=== PATIENT | male | born 1955 | race African-American/Black ===

== ENCOUNTER 2017-06-19 12:10 | Inpatient (IN) | payer OTHER ==
[2017-06-19] VITALS (25 sets, daily range): BP systolic 61–165; BP diastolic 36–79
[~2017-06-19] VITALS: Ht 190.5 cm; Wt 124.8 kg
--- NOTE | ~2017-06-19 | EKG ---
[address] [address] ELECTROCARDIOGRAM REPORT Name: YUDITH HOSKINS Room #: 238-P ADM IN M.R.#: [id number] Admission: 06/19/17 Attend Phys: Raheem Phan MD Discharge: Date of : 59 Report #: [id number] THIS REPORT FOR: //name// [facility] Test Date: 2017-06-21 Test Time: 14:41:09 Pat Name: YUDITH HOSKINS Department: Room: 238 P Gender: M Pumper Gager: haydee : 1955 Requested By: Raheem Phan Order Number: [id number] MD: Kamran Wade Measurements Intervals [place] Rate: 95 P: 44 NC: 41 QRS: 11 QRSD: 96 T: 157 QT: 361 QTc: 454 Interpretive Statements Atrial fibrillation RSR' in V1 or V2, probably normal variant LVH with secondary repolarization abnormality No previous ECG available for comparison Electronically Signed On 06-21-2017 17:43:07 CDT by Kamran Wade [email or web address] <ELECTRONICALLY SIGNED> By: Kamran Wade MD 06/21/17 174 [id number] 40 Kamran Wade MD /BRITTANY
--- NOTE | ~2017-06-19 | EKG ---
[address] [address] ELECTROCARDIOGRAM REPORT Name: YUDITH HOSKINS Room #: 350-P ADM IN M.R.#: [id number] Admission: 06/19/17 Attend Phys: Raheem Phan MD Discharge: Date of : 59 Report #: [id number] THIS REPORT FOR: //name// [facility] Test Date: 2017-07-03 Test Time: 11:38:50 Pat Name: YUDITH HOSKINS Department: Room: 350 P Gender: M Framing Manager: CHRISTY : 1955 Requested By: Raheem Phan Order Number: [id number] MD: Milind Ragsdale Measurements Intervals [place] Rate: 81 P: -29 [place]: 186 QRS: 3 QRSD: 101 T: 156 QT: 432 QTc: 502 Interpretive Statements Sinus rhythm LVH with secondary repolarization abnormality Prolonged QT interval Compared to ECG 06/30/2017 02:11:29 Ectopic atrial tachycardia, multifocal no longer present Electronically Signed On 07-03-2017 17:10:40 CDT by Milind Ragsdale [email or web address] <ELECTRONICALLY SIGNED> By: Milind Ragsdale MD, [facility] 07/03/17 7570 1138 1138 Milind Ragsdale MD, [facility] /EPI
--- NOTE | ~2017-06-19 | HC ---
[facility] [place] [address] CONSULTATION Name: YUDITH HOSKINS Room #: 238-P [facility] IN M.R.#: [id number] Admission: 06/19/17 Attend Phys: Raheem Phan MD Discharge: Date of : 59 Report #: [id number] THIS REPORT FOR: //name// CC: GARY physician/PCP Raheem Phan DATE OF SERVICE: 06/22/2017 CONTINUATION OF DICTATION NUMBER [id number] HISTORY OF PRESENT ILLNESS: The patient's hemoglobin was followed and he received blood transfusions as necessary (he had received 2 units of blood). He developed mental status changes while in the intensive care unit and had a decreased level of consciousness. Neurology was consulted. He had another episode of hematemesis and decision was made to intubate the patient on 06/21/2017. On second EGD, a large amount of clot seen in the antrum of the stomach with ulcers seen at the incisura as well as in the antrum (the largest ulcer seen). The clotted ulcer base was injected with epinephrine and 2 clips were placed. The patient has received 4 total units of packed red blood cells. I have been asked to see the patient for further evaluation and treatment. The patient remained intubated and now is conscious. He is on a PPI drip. The subjective portion of this report is taken from the electronic medical record. PAST MEDICAL HISTORY: Denies. PAST SURGICAL HISTORY: Left knee surgery. MEDICATIONS: No medications at home. ALLERGIES: No known drug allergies. FAMILY HISTORY: Reviewed and noncontributory to this hospitalization. SOCIAL HISTORY: The patient denies use of tobacco or illicit drugs and drinks alcohol socially. REVIEW OF SYSTEMS: Unable to be obtained as the patient is intubated and nonresponsive/sedated. PHYSICAL EXAMINATION: VITAL SIGNS: Temperature 98.9, blood pressure 113/65, pulse 82. GENERAL: This is a 62-year-old male patient who is intubated and nonresponsive in the ICU. HEENT: Otherwise, atraumatic and normocephalic. NECK: Supple without appreciable lymphadenopathy. Trachea is midline. CHEST: Ports bilaterally. [facility] [address] [place] [address] CONSULTATION Name: YUDITH HOSKINS Room #: 238-P [facility] IN M.R.#: [id number] Admission: 06/19/17 Attend Phys: Raheem Phan MD Discharge: Date of : 59 Report #: [id number] CARDIOVASCULAR: Regular rate and rhythm. ABDOMEN: Soft and nondistended, no appreciable tenderness to palpation. No surgical scars. No hernias. No palpable masses. GENITOURINARY: Normal external male genitalia. EXTREMITIES: No clubbing, cyanosis or edema. NEUROLOGIC: Unable to assess. PSYCHIATRIC: Unable to assess. SKIN AND INTEGUMENTARY: No acute inflammatory changes, rashes or lesions are present. LABORATORY DATA: The patient is receiving packed red blood cells. H. pylori was negative. CBC shows a white blood cell count of 11.3, platelet count 109. Hemoglobin and hematocrit this morning was 7.2 and 21.1. The most recent hemoglobin this afternoon is 6.7. RADIOLOGIC STUDIES: Most recent chest x-ray shows no evidence for pneumonia or pneumothorax. The patient has undergone brain MRI showing extensive deep white matter changes to both hemispheres (felt to be chronic changes). CT of the brain was performed yesterday, which showed atrophy and microvascular disease without evidence of a new infarct or mass affect. CTA of the head and neck were unremarkable. IMPRESSION AND PLAN: This is a 62-year-old otherwise reportedly healthy female patient with bleeding peptic ulcer disease, who has undergone endoscopy on two occasions with injection of epinephrine and placement of clips at the time of both procedures. He has received 4 total units of packed red blood cells. He had become hemodynamically unstable, but is now stable with systolic pressure in the 110s. The patient may be slowly bleeding as his hemoglobin has dipped down. He is being monitored closely. Continue the proton drip. Should he develop another acute bleed, Interventional Radiology would be the next step in the algorithm. If IR is unable to control the bleeding, the patient may require operative intervention. I will follow along closely with you. I sincerely appreciate the opportunity to participate in the care of this patient and will leave further recommendations and orders in the electronic medical record as appropriate. Thank you very much. By: 0613 0732 Leroy Mccarty MD, FACS /nt
--- NOTE | ~2017-06-19 | HC ---
[facility] [place] [address] CONSULTATION Name: YUDITH HOSKINS Room #: 238-P [facility] IN M.R.#: [id number] Admission: 06/19/17 Attend Phys: Raheem Phan MD Discharge: Date of : 59 Report #: [id number] THIS REPORT FOR: //name// CC: GARY physician/PCP Raheem Phan DATE OF SERVICE: 06/25/2017 CONSULTATION: Infectious diseases. HISTORY OF PRESENT ILLNESS: The patient is a 62-year-old -Guyanese male admitted to [facility] 06/19 with sudden onset of nausea, vomiting, cramping and bloody stool. Initial workup suggested GI bleeding with elevated creatinine, elevated glucose. These both were new findings. The patient had a juancarlos hospital course. He required 2 endoscopic clipping procedures for 3 gastric ulcers. On 06/21, the patient had a repeat bleed. Hemoglobin down to 5.6. The patient developed dyspnea and depressed mental status, unable to protect his airway. He was intubated primarily for airway protection. He continued to have abnormal mental status and it is thought he had multiple ischemic strokes. He continues on the ventilator. In this setting, the patient began running elevated temperature at 102.8. Infectious Disease consultation was requested as antibiotics were initiated. PAST MEDICAL HISTORY: Remarkably bland. The chart notes, patient has really no significant past medical history prior to coming to the hospital. He had knee surgery in the past. ALLERGIES: He has no known drug allergies. FAMILY HISTORY: Noncontributory. SOCIAL HISTORY: The patient, I understand was single, living by himself. He has no history of tobacco, alcohol or drugs. The patient lists his employment as retired. REVIEW OF SYSTEMS: Unavailable as the patient is sedated on a ventilator. PHYSICAL EXAMINATION: GENERAL: The patient appears his stated age, minimally responsive on sedation. He appears comfortable, not in any distress. VITAL SIGNS: Show maximum temperature 102.8, blood pressure 144/71. SKIN: Shows no rash, lesion or exanthem. No wounds. ENT: Negative. Nasogastric and oral endotracheal tube appear to be in proper position. Pupils are sluggish but reactive. Heart sounds are S1, S2. Regular rate and rhythm. [facility] [address] [place] [address] CONSULTATION Name: YUDITH HOSKINS Room #: 238-P [facility] IN M.R.#: [id number] Admission: 06/19/17 Attend Phys: Raheem Phan MD Discharge: Date of : 59 Report #: [id number] LUNGS: Clear to anterior auscultation. ABDOMEN: Belly is soft, nontender. No mass, no organomegaly. EXTREMITIES: Show just trace pedal edema, no wounds. The PICC line is present in the right arm and the site appears unremarkable. LABORATORY STUDIES: White count is 10.3, hemoglobin after transfusion and is now stable at 7.9 for the last 24 hours, hematocrit 23%, platelet 120,000. Electrolytes are normal. BUN 17, creatinine is down from 2.5 to 1.2. Glucose today is 151. Liver function tests are normal. IMAGING: Chest x-ray shows enlarged heart, but no infiltrates. Scans of the brain with CT and MR show no vascular disease, but evidence of multiple ischemic infarcts versus demyelinating disease. Dr. Nunes thinks the patient has had multiple ischemic strokes. Urinalysis showed 6-15 white cells, 3+ blood, negative nitrites. ASSESSMENT AND PLAN: In summary, the patient who has had a very juancarlos course with delirium, GI bleeding, respiratory failure, who now has a fever. Appropriate studies for blood, urine and sputum have been initiated. The patient has been started on vancomycin plus meropenem, which would be the appropriate broad spectrum coverage for a patient with fever of unknown origin after being in the hospital for a week. With the multiple infarcts in the brain, we may want to consider the possibility of a central neurogenic fever if the infection workup is negative and the patient does not respond to antibiotics. As you know this is a diagnosis of exclusion without any specific test available. For now, we will initiate high dose antibiotic therapy. We will await results of cultures and the patient's course going forward. I appreciate the opportunity of input in the care of this complex patient. Thank you for having infectious disease input into his care. I will be happy to follow the patient through the weekend. Dr. Wade will return on Tuesday. Thank you for this consultation. <ELECTRONICALLY SIGNED> By: Brando Cleary MD 06/26/17 0946 0015 0231 Brando Cleary MD /nt
--- NOTE | ~2017-06-19 | P ---
[facility] [place] [address] PROCEDURE REPORT Name: YUDITH HOSKINS Room #: 238-P [facility] IN M.R.#: [id number] Admission: 06/19/17 Attend Phys: Raheem Phan MD Discharge: Date of : 59 Report #: [id number] THIS REPORT FOR: //name// CC: Raheem Phan NO PCP DATE OF SERVICE: 06/19/2017 SURGEON: Joe [place] MD. PREOPERATIVE DIAGNOSIS: Upper gastrointestinal bleed. POSTOPERATIVE DIAGNOSIS: Gastric ulcer. NAME OF PROCEDURE PERFORMED: EGD with control of bleeding. ANESTHESIA USED: Included fentanyl 25 mcg IV slow push and Versed 3 mg IV slow push in slow incremental amounts. FINDINGS: 1. Gastric ulcer with visible vessel. 2. Otherwise, normal upper endoscopy. DESCRIPTION OF PROCEDURE: Informed consent was obtained. The patient was in the Intensive Care Unit. He was put in the left lateral decubitus position and given the IV sedation as discussed above. The endoscope was passed through the oropharynx and into the esophagus and stomach. There was a moderate amount of blood noted in the stomach. This was suctioned out through the scope. It was about 400-500 mL. A gastric ulcer was noted on the incisura. This had a visible vessel and was intermittently oozing some blood. I injected the area with a scleral needle with 2 mL of epinephrine. Then, the area was BICAP treated with good control of bleeding. Finally, the area was endoclipped with success of cessation of bleeding. The endoscope was withdrawn. The patient tolerated the procedure well and was recovered in stable condition. IMPRESSION: Successful control of bleeding from a gastric ulcer, using a sclerotherapy needle and injecting epinephrine, using a BICAP probe, and using an endoclip to the area. RECOMMENDATIONS: 1. Continue proton pump inhibitor. [facility] [address] [place] [address] PROCEDURE REPORT Name: YUDITH HOSKINS Room #: 238-P [facility] IN M.R.#: [id number] Admission: 06/19/17 Attend Phys: Raheem Phan MD Discharge: Date of : 59 Report #: [id number] 2. Follow hemoglobin. 3. Keep n.p.o. for now. <ELECTRONICALLY SIGNED> By: William Montez MD 06/22/17 0819 2224 2317 Joe [place] MD /nt
--- NOTE | ~2017-06-19 | P ---
[facility] [place] [address] PROCEDURE REPORT Name: YUDITH HOSKINS Room #: 238-P [facility] IN M.R.#: [id number] Admission: 06/19/17 Attend Phys: Raheem Phan MD Discharge: Date of : 59 Report #: [id number] THIS REPORT FOR: //name// CC: Raheem Phan NO [facility] DATE OF SERVICE: 06/21/2017 This is an ICU bed 238. INDICATION FOR THE UPPER ENDOSCOPY: Hematemesis, melena and recent gastric ulcer that was treated endoscopically 48 hours prior. DESCRIPTION OF PROCEDURE: The patient had been intubated due to altered mental status and propofol was used for sedation. The ____ adult endoscope was introduced through the mouth, into the esophagus and extended into the second portion of the duodenum, then withdrawn carefully for careful inspection. The esophagus was normal. Duodenum had a small amount of blood, but there were no ulcers. Three ulcers were seen in the stomach; one on the incisura, this was clean based and two in the antrum. There was significant clot burden in the fundus and the antrum, but no active bleeding. The largest antral ulcer had an overlying clot. This was thought to be the source of the bleeding. The base of the clot was unable to be visualized. The clotted ulcer base was injected with epinephrine and the majority of the clot was then snared off. Two hemostatic clips were deployed. There was no bleeding at the end of the procedure. PROCEDURE: ____ EGD with injection of epinephrine and placement of two hemostatic clips. COMPLICATIONS: Prior to starting the procedure, the patient vomited approximately 20 mL of blood clot. RECOMMENDATIONS: To keep the patient n.p.o., monitor H and H every 12 hours and transfuse as needed. Hemodynamic support per the ICU team. Continue the PPI infusion and if ongoing significant bleeding occurs, consider IR consult for angiography and possible embolization. We will follow along with you. <ELECTRONICALLY SIGNED> By: Jasiel Coyle MD 06/23/172101 28 2245 Jasiel Coyle MD /nt
--- NOTE | ~2017-06-19 | HC ---
[facility] [place] [address] CONSULTATION Name: YUDITH HOSKINS Room #: 350-P [facility] IN M.R.#: [id number] Admission: 06/19/17 Attend Phys: Raheem Phan MD Discharge: Date of : 59 Report #: [id number] THIS REPORT FOR: //name// CC: GARY physician/PCP Raheem Phan DATE OF SERVICE: 06/30/2017 HISTORY OF PRESENT ILLNESS: The patient is a 62-year-old -Chinese male who was admitted with bloody stools, noted to have an upper gastrointestinal bleed secondary to gastric ulcer. There was endoclipping on 06/19/2017 and an upper endoscopy on 06/21/2017. His course was complicated by a code blue on 06/21/2017. He was intubated with acute respiratory failure. EEG 06/22/2017 showed moderate diffuse cerebral dysfunction consistent with an encephalopathy. MRI was consistent with multiple bilateral small acute to subacute strokes, noted to be ischemic involving bilateral hemispheres, basal ganglia and cerebellum. Neurology has been involved. His course has been complicated with MRSA bronchitis with Infectious Disease involved and treatment with vancomycin. The patient was noted to have diabetes mellitus new diagnosis with hemoglobin A1c as noted. He has acute renal insufficiency. He has had dysphagia and has had Dobbhoff placement. He pulled out the Dobbhoff off and speech therapy is reassessing his dysphagia. We are seeing him in rehabilitation medicine consultation. PAST MEDICAL HISTORY: Relatively benign. He has had left knee surgery for a meniscus tear. HABITS: No history of tobacco abuse, apparently some alcohol use. No history of any abuse of alcohol. FAMILY HISTORY: Positive for strokes including a sister who had a stroke at age 38 and his father had a stroke as well. MEDICATIONS: See the full medication listing. REVIEW OF SYSTEMS: No specific complaints of chest pain, shortness of breath or abdominal discomfort. Somewhat limited as the patient has decreased verbalizations. SOCIAL HISTORY: Lives in a house with his sister, single eli. He did not utilize gait aids, was apparently active around the house, doing some cooking with mow the lawn. Apparently retired from the [employer]. Sister indicated he attended to stay to himself. PHYSICAL EXAMINATION: GENERAL: A 62-year-old -Chinese male in no obvious distress. [address] [address] CONSULTATION Name: YUDITH HOSKINS Room #: 350-P [facility] IN M.R.#: [id number] Admission: 06/19/17 Attend Phys: Raheem Phan MD Discharge: Date of : 59 Report #: [id number] VITAL SIGNS: Temperature 37.1, pulse 97, respirations 18, blood pressure 164/82. He does have evidence of some left eye ptosis. NEUROLOGIC: He has limited verbalizations with soft speech. EOMs appeared to be full without any obvious disconjugate gaze. Facies were otherwise symmetric. EXTREMITIES: Left upper and left lower extremity revealed strength probably a grade 3+/5. Right upper and right lower extremity were 3-3+/5. He had more weakness involving the right upper and right lower extremity. He has some increased tone of the right upper and right lower extremity. I had difficulty assessing sensation currently due to a tension and decreased verbalization. He is currently max assist with bed mobility and sitting at the edge of bed with max assist with lean to the right. ASSESSMENT: A 62-year-old -Chinese male with the following problem list: 1. Multiple small acute subacute ischemic strokes, bilateral hemispheres, basal ganglia and cerebellum. 2. Dysphagia. Dobbhoff is out and speech therapy is assessing regarding swallowing. 3. Upper gastrointestinal bleed with several gastric ulcers. 4. Acute encephalopathy. Neurology is involved. 5. Code blue 06/21/2017, 6. Methicillin-resistant Staphylococcus aureus bronchitis with Infectious Disease involved. 7. Diabetes mellitus type 2 with hemoglobin A1c. 8. Acute renal insufficiency, improving. PLAN: Therapies are working with him. We will be glad to assist regarding his rehabilitation therapy needs. Insurance will need to be checked regarding any rehab therapy transfer. At this point, we will be glad to follow along with you. <ELECTRONICALLY SIGNED> By: Dann Goldberg MD 07/05/17 1105 1408 0023 Dann Goldberg MD /[facility]
--- NOTE | ~2017-06-19 | HC ---
[facility] [place] [address] CONSULTATION Name: YUDTIH HOSKINS Room #: 350-P ADM IN M.R.#: [id number] Admission: 06/19/17 Attend Phys: Raheem Phan MD Discharge: Date of : 59 Report #: [id number] THIS REPORT FOR: //name// CC: GARY physician/PCP Raheem Phan REASON FOR CONSULTATION: Elevated troponin. HISTORY OF PRESENT ILLNESS: The patient is a 62-year-old who was admitted with an upper GI bleed, underwent clipping of some gastric ulcers. Hospitalization was complicated by acute respiratory failure and encephalopathy, eventually extubated on June 28. Today, he was noted to be having some increased shortness of breath. His systolic blood pressures have been very high for several days up to 180s and 190s. Systolics on the were in the 200 range. As he was having some shortness of breath, he underwent an EKG today, which I reviewed that showed no ischemia in sinus rhythm. He underwent a troponin that was elevated at 0.4. He has had multiple troponins that remained somewhat elevated. There were troponins elevated at the time of admission. He denies any chest pain. He denies any shortness of breath. He cannot really give a good review of systems. He is not really with that. PAST MEDICAL HISTORY: GI bleed, diabetes, respiratory failure, multiple infarcts on the scan, echocardiogram on June 24 showed an EF of 55-60% with no significant valvular abnormalities. SOCIAL HISTORY: Unable to obtain. FAMILY HISTORY: Unable to obtain. ALLERGIES: No known drug allergies. MEDICATIONS: Have been reviewed and he is on some enalapril and some metoprolol as he cannot take p.o. medications due to failed swallow study. REVIEW OF SYSTEMS: Unable to obtain due to altered mental status. PHYSICAL EXAMINATION: VITAL SIGNS: Temperature is 36.2, pulse 72, respiration 20, blood pressure 196/91, sats are 100%. GENERAL: He is alert, answers questions very slowly. He is not alert to time or place. HEENT: Oropharynx is clear. NECK: Supple, with no thyromegaly. HEART: Regular rate and rhythm with no murmurs, rubs, gallops. There is no elevated jugular venous pressure. LUNGS: Clear to auscultation bilaterally. ABDOMEN: Soft, nontender, nondistended. [facility] [address] [place] [address] CONSULTATION Name: YUDITH HOSKINS Room #: 350-P ADM IN M.R.#: [id number] Admission: 06/19/17 Attend Phys: Raheem Phan MD Discharge: Date of : 59 Report #: [id number] EXTREMITIES: There is no clubbing, cyanosis or edema. NEUROLOGIC: Cranial nerves 2-12 are intact. LABORATORY DATA: A pH is 7.4, pCO2 of 31, pO2 59, white count 12.7, hemoglobin 9, platelets 562. Sodium 146, potassium 3.1, chloride 114, bicarbonate 24, creatinine 1.4. Troponin 0.4, on the 10th was 0.2, on the 9th it was 0.2. EKG shows sinus rhythm with no ischemic changes. His telemetry shows no significant arrhythmias. There is some sinus tachycardia with aberration noted. CT chest shows no PE or aortic dissection. There are some small bilateral pleural effusions. ASSESSMENT AND PLAN: In summary, the patient is a 62-year-old coming in with gastrointestinal bleed who has poorly controlled hypertension and cannot take p.o. medications. I recommend optimizing his blood pressure with IV medications and if he will not be able to take p.o. meds, then perhaps he needs Dobhoff tube placed. In terms of his elevated troponins, there is no evidence of ischemia on his EKG nor there is any chest pain. I think that his elevated troponin is secondary to his poorly controlled hypertension. We need to optimize his blood pressure. We will continue to follow. By: 1521 1557 Kamran Wade MD /nt
--- NOTE | ~2017-06-19 | EKG ---
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 : 1955 Requested By: Sherly Arciniega Order Number: [id number] MD: Milind Ragsdale Measurements Intervals [place] Rate: 110 P: [place]: QRS: -5 QRSD: 96 T: 148 QT: 368 QTc: 498 Interpretive Statements Multifocal atrial tachycardia Ventricular premature complex LVH with secondary repolarization abnormality Borderline prolonged QT interval Compared to ECG 06/21/2017 14:41:09 Ventricular premature complex(es) now present Electronically Signed On 06-30-2017 9:11:41 CDT by Milind Ragsdale [email or web address] <ELECTRONICALLY SIGNED> By: Milind Ragsdale MD, [facility] 06/30/17910 0 0 Milind Ragsdale MD, [facility] /EPI
--- NOTE | ~2017-06-19 | HC ---
[facility] [place] [address] CONSULTATION Name: YUDITH HOSKINS Room #: 238-P [facility] IN M.R.#: [id number] Admission: 06/19/17 Attend Phys: Raheem Phan MD Discharge: Date of : 59 Report #: [id number] THIS REPORT FOR: //name// CC: Hansel [facility] physician/PCP RAHEEM Lainezmen REASON FOR CONSULTATION: Upper GI bleed. HISTORY OF PRESENT ILLNESS: This 62-year-old reportedly otherwise healthy male patient was seen in the [facility] with acute onset abdominal cramping, nausea, vomiting, and diaphoresis. He passed some bloody stools as well as dark stools. He was admitted through the Emergency Room and GI was consulted. His hemoglobin was 13 at the time of admission. After admission, he had an episode of hematemesis, vomiting approximately 700 mL of bright red blood. He had hemodynamic changes with a systolic blood pressure of 90 as well as diaphoresis. The patient was transferred to intensive care unit and GI performed an urgent EGD. This revealed a gastric ulcer with a visible vessel at the incisura of the stomach. The vessel was intermittently oozing blood and the ulcer was injected with epinephrine and clipped. The patient's hemoglobin was followed and he received blood transfusions as necessary (he had received 2 units of blood). He developed mental status changes while in the intensive care unit and had a decreased level of consciousness. Neurology was consulted. He had another episode of hematemesis and decision was made to intubate the patient on 06/21/2017. On second EGD, a large amount of clot seen in the antrum of the stomach with ulcers seen at the incisura as well as in the antrum (the largest ulcer seen). The clotted ulcer base was injected with epinephrine and 2 clips were placed. The patient has received 4 total units of packed red blood cells. I have been asked to see the patient for further evaluation and treatment. The patient remained intubated and now is conscious. He is on a PPI drip. The subjective portion of this report is taken from the electronic medical record. PAST MEDICAL HISTORY: Denies. PAST SURGICAL HISTORY: Left knee surgery. MEDICATIONS: No medications at home. ALLERGIES: No known drug allergies. FAMILY HISTORY: Reviewed and noncontributory to this hospitalization. SOCIAL HISTORY: The patient denies use of tobacco or illicit drugs and drinks [address] [address] CONSULTATION Name: YUDITH HOSKINS Room #: 238-P [facility] IN [facility]#: [id number] Admission: 06/19/17 Attend Phys: Raheem Phan MD Discharge: Date of : 59 Report #: [id number] alcohol socially. REVIEW OF SYSTEMS: Unable to be obtained as the patient is intubated and nonresponsive/sedated. PHYSICAL EXAMINATION: VITAL SIGNS: Temperature 98.9, blood pressure 113/65, pulse 82. GENERAL: This is a 62-year-old male patient who is intubated and nonresponsive in the ICU. HEENT: Otherwise, atraumatic and normocephalic. NECK: Supple without appreciable lymphadenopathy. Trachea is midline. CHEST: Ports bilaterally. CARDIOVASCULAR: Regular rate and rhythm. ABDOMEN: Soft and nondistended, no appreciable tenderness to palpation. No surgical scars. No hernias. No palpable masses. GENITOURINARY: Normal external male genitalia. EXTREMITIES: No clubbing, cyanosis or edema. NEUROLOGIC: Unable to assess. PSYCHIATRIC: Unable to assess. SKIN AND INTEGUMENTARY: No acute inflammatory changes, rashes or lesions are present. LABORATORY DATA: The patient is receiving packed red blood cells. H. pylori was negative. CBC shows a white blood cell count of 11.3, platelet count 109. Hemoglobin and hematocrit this morning was 7.2 and 21.1. The most recent hemoglobin this afternoon is 6.7. RADIOLOGIC STUDIES: Most recent chest x-ray shows no evidence for pneumonia or pneumothorax. The patient has undergone brain MRI showing extensive deep white matter changes to both hemispheres (felt to be chronic changes). CT of the brain was performed yesterday, which showed atrophy and microvascular disease without evidence of a new infarct or mass affect. CTA of the head and neck were unremarkable. IMPRESSION AND PLAN: This is a 62-year-old otherwise reportedly healthy female patient with bleeding peptic ulcer disease, who has undergone endoscopy on two occasions with injection of epinephrine and placement of clips at the time of both procedures. He has received 4 total units of packed red blood cells. He had become hemodynamically unstable, but is now stable with systolic pressure in the 110s. The patient may be slowly bleeding as his hemoglobin has dipped down. He is being monitored closely. Continue the proton drip. Should he develop another acute bleed, Interventional Radiology would be the next step in the algorithm. If IR is unable to control the bleeding, the patient may require operative intervention. I will follow along closely with you. I sincerely appreciate the opportunity to participate in the care of this [facility] [address] [place] [address] CONSULTATION Name: YUDITH HOSKINS Room #: 238-P ADM IN M.R.#: [id number] Admission: 06/19/17 Attend Phys: Raheem Phan MD Discharge: Date of : 59 Report #: [id number] patient and will leave further recommendations and orders in the electronic medical record as appropriate. Thank you very much. <ELECTRONICALLY SIGNED> By: Leroy Mccarty MD, FACS 06/24/17 1044 [id number] [id number] Leroy Mccarty MD, FACS /nt
--- NOTE | ~2017-06-19 | EKG ---
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 : 1955 Requested By: Radha Manning Order Number: [id number] MD: Kamran Wade Measurements Intervals [place] Rate: 73 P: -46 [place]: 177 QRS: 5 QRSD: 110 T: 177 QT: 438 QTc: 483 Interpretive Statements Sinus or ectopic atrial rhythm Sinus pause LVH with IVCD and secondary repol abnrm Borderline prolonged QT interval Compared to ECG 07/03/2017 11:38:50 Ectopic atrial rhythm now present Sinus pause or arrest now present Intraventricular conduction delay now present Sinus rhythm no longer present Electronically Signed On 07-05-2017 7:08:36 CDT by Kamran Wade [email or web address] <ELECTRONICALLY SIGNED> By: Kamran Wade MD 07/05/17 0708 1113 1113 Kamran Wade MD /EPI
--- NOTE | ~2017-06-19 | HC ---
[facility] [place] [address] CONSULTATION Name: YUDITH HOSKINS Room #: 238-P [facility] IN .R.#: [id number] Admission: 06/19/17 Attend Phys: Raheem Phan MD Discharge: Date of : 59 Report #: [id number] THIS REPORT FOR: //name// CC: Raheem [facility] DATE OF SERVICE: 06/19/2017 TYPE OF REPORT: Gastroenterology consultation. HISTORY OF PRESENT ILLNESS: The patient is a 62-year-old male. He came to the hospital complaining of abdominal pain, nausea and vomiting. He had some bloody stools. He vomited some bright red blood. When he came into the hospital, his hemoglobin was 13. He was admitted to monitor bed. He was put on a proton pump inhibitor drip. On the floor, he had another episode of hematemesis. He vomited 700 mL of bright red blood. He became mildly hypotensive with a systolic blood pressure of 90. He became very diaphoretic and drowsy. He was given an IV fluid bolus and sent to the Intensive Care Unit for further evaluation. PAST MEDICAL HISTORY: Otherwise, unremarkable. SOCIAL HISTORY: Reveals that he does not smoke cigarettes nor abuse alcohol. FAMILY HISTORY: Does not reveal gastrointestinal problems. PAST MEDICAL HISTORY: Essentially unremarkable. REVIEW OF SYSTEMS: Reveals that he has not lost weight. Denies chest pain, heart murmurs or palpitations. Denies shortness of breath, cough or wheezing. Denies dysuria, hematuria, urinary frequency or urgency. No seizures, dizziness, nervousness, anxiety or depression. PHYSICAL EXAMINATION: GENERAL: Reveals a well-developed, well-nourished male, in no acute distress. VITAL SIGNS: Earlier blood pressure was 148/78 and most recent recorded blood pressure is 97/56 and his pulse was 82. HEENT: Reveals anicteric sclerae. Normal oropharynx. NECK: Supple, without lymphadenopathy. CARDIOVASCULAR: Regular rate and rhythm. LUNGS: Clear to auscultation. ABDOMEN: Soft and nontender. No masses. No hepatosplenomegaly. EXTREMITIES: Reveal no clubbing, cyanosis or edema. NEUROLOGICAL: He is alert and oriented x 3 without any gross motor or sensory deficits. [facility] [address] [place] [address] CONSULTATION Name: YUDITH HOSKINS Room #: 238-P [facility] IN ..#: [id number] Admission: 06/19/17 Attend Phys: Raheem Phan MD Discharge: Date of : 59 Report #: [id number] LABORATORY DATA: Reveal most recent hemoglobin 10.1. His INR was 1.0. Sodium 134, potassium 4.8, BUN 39 and creatinine 2.0. Liver function studies were normal. Lipase was normal. IMPRESSION: Upper gastrointestinal bleed. Rule out peptic ulcer disease. I doubt esophageal varices, since no significant history of alcohol consumption or signs of other liver diseases. RECOMMENDATIONS: 1. Follow laboratories. 2. Supportive care with IV fluids and blood products if necessary. 3. Continue proton pump inhibitor drip. 4. We will proceed with emergent EGD tonight to further evaluate. 5. Further recommendations will be dependent upon results of EGD. Thank you for allowing me to participate in the care of this patient. <ELECTRONICALLY SIGNED> By: William Montez MD 06/22/17 0819 2130 2321 Joe Walters MD /nt
--- NOTE | ~2017-06-19 | 2DMMODE ---
[facility] [address] [place] [address] 2 D/M-MODE ECHOCARDIOGRAM Name: YUDITH HOSKINS Room #: 238-P ADM IN M.R.#: [id number] Admission: 06/19/17 Attend Phys: Raheem Phan, Discharge: Date of : 59 Date of Service: 06/24/17 1418 Report #: [id number] THIS REPORT FOR: //name// APPROVED REPORT Study performed: 06/24/2017 13:01:48 EXAM: Comprehensive 2D, Doppler, and color-flow Echocardiogram Patient Location: ICU Room #: 238 Status: routine BSA: 2.51 BP: 159/69 mmHg Other Information Study Quality: Adequate, Technically Difficult Technically limited study due to inability to position patient, patient on ventilator. Indications CVA/TIA Diabetes Echo Enhancing Agent Indication: Rule out Shunt Agent(s) / Amount(s) Used: Agitated Saline 8 cc 2D Dimensions RVDd: 34.16 mm LVEF(%): 57.49 (>50%) IVSd: 15.12 (7-11mm) LVOT Diam: 22.77 (18-24mm) LVDd: 46.86 mm PWd: 16.00 (7-11mm) Ascending Ao: 30.06 (22-36mm) LVDs: 32.71 (25-40mm) Aortic Root: 34.65 mm IVC: 23.00 mm Varghese's LVEF: 57.49 % Volumes Left Atrial Volume (Systole) Single Plane 4CH: 91.70 mL Single Plane 2CH: 48.88 mL LA ESV Index: 30.00 mL/m2 Aortic Valve AoV Peak Dany.: 1.81 m/s AO Peak Gr.: 13.13 mmHg LVOT Max P.39 mmHg [facility] [place] [address] [address] [place] [address] 2 D/M-MODE ECHOCARDIOGRAM Name: YUDITH HOSKINS Room #: 238-P [facility] IN M.R.#: [id number] Admission: 06/19/17 Attend Phys: Raheem Phan, Discharge: Date of : 59 Date of Service: 06/24/17 1418 Report #: [id number] LVOT Max V: 1.26 m/s LELIA Vmax: 2.84 cm2 Mitral Valve E/A Ratio: 0.8 MV Decel. Time: 206.99 ms MV E Max Dany.: 0.93 m/s MV A Dany.: 1.18 m/s MV PHT: 60.03 ms IVRT: 93.43 ms Pulmonary Valve PV Peak Dany.: 1.48 m/s PV Peak Gr.: 8.80 mmHg Left Ventricle The left ventricle is normal size. Moderate concentric left ventricular hypertrophy. The left ventricular systolic function is normal. The left ventricular ejection fraction is within the normal range. LVEF is 55-60%. Mild diastolic dysfunction is present (impaired relaxation pattern). Right Ventricle Right ventricle is at the upper limits of normal. The right ventricular systolic function is normal. Atria Left atrium is at the upper limits of normal. Injection of bubbles documented no interatrial shunt. Right atrium is at the upper limits of normal. Aortic Valve The aortic valve is normal in structure. No aortic regurgitation is present. There is no aortic valvular stenosis. Mitral Valve The mitral valve is normal in structure. Trace mitral regurgitation. No evidence of mitral valve stenosis. Tricuspid Valve The tricuspid valve is normal in structure. There is no tricuspid valve regurgitation noted. Unable to assess PA pressure. Pulmonic Valve Pulmonic valve is not well visualized. There is no pulmonic valvular regurgitation. [address] [address] 2 D/M-MODE ECHOCARDIOGRAM Name: YUDITH HOSKINS Room #: 238-P ADM IN M.R.#: [id number] Admission: 06/19/17 Attend Phys: Raheem Phan, Discharge: Date of : 59 Date of Service: 06/24/17 1418 Report #: [id number] Great Vessels The aortic root is normal in size. IVC is dilated, unable to assess collapse due to patient condition. Pericardium There is no pericardial effusion. <Conclusion> The left ventricle is normal size. LVEF is 55-60%. Right ventricle is at the upper limits of normal. Left atrium is at the upper limits of normal. Right atrium is at the upper limits of normal. The aortic valve is normal in structure. The mitral valve is normal in structure. Trace mitral regurgitation. The tricuspid valve is normal in structure. There is no tricuspid valve regurgitation noted. Unable to assess PA pressure. Pulmonic valve is not well visualized. There is no pericardial effusion. Injection of bubbles documented no interatrial shunt. <ELECTRONICALLY SIGNED> By: Rafa Branch MD 06/24/17 1418 17 Rafa Branch MD /INF
[2017-06-19 14:29] LABS: ABSOLUTE NEUTROPHILS 12.3 thou/uL (1.4-8.2); BASOPHILS 0.3 % (0.0-2.0); EOSINOPHILS 0.1 % (0.0-3.0); HEMATOCRIT 40.4 % (42.0-52.0); MCH 26.5 pg (26.0-34.0); MCHC 32.2 g/dL (28.0-37.0); MCV 82.2 fL (80.0-100.0); MONOCYTES 5.4 % (1.0-8.0); PLATELET COUNT 174 thou/uL (150-400); POLYS 89.2 % (36.0-66.0); RBC 4.91 mil/uL (4.50-6.00); RDW 14.3 % (10.5-14.5); WBC 13.8 thou/uL (4.0-11.0)
[2017-06-19 14:31] LABS: MANUAL DIFF NO
[2017-06-19 14:35] LABS: CALCIUM 9.2 mg/dL (8.5-10.1); CREATININE 2.5 mg/dL (0.7-1.3); POTASSIUM 4.6 mmol/L (3.5-5.1)
[2017-06-19 14:40] LABS: ALBUMIN 3.7 g/dL (3.4-5.0); TOTAL BILIRUBIN 0.3 mg/dL (<0.1-1.0); TOTAL PROTEIN 7.2 g/dL (6.4-8.2)
[2017-06-19 15:10] LABS: APTT 23.8 Seconds (24.5-32.8); PROTIME 10.6 Seconds (9.3-11.4)
[2017-06-19 20:13] LABS: HEMATOCRIT 30.3 % (42.0-52.0)
[2017-06-19 20:15] LABS: HEMOGLOBIN 10.1 gm/dL (14.0-18.0)
[2017-06-19 21:07] LABS: ABSOLUTE NEUTROPHILS 10.7 thou/uL (1.4-8.2); BASOPHILS 0.2 % (0.0-2.0); HEMATOCRIT 30.4 % (42.0-52.0); HEMOGLOBIN 10.1 gm/dL (14.0-18.0); LYMPHOCYTES 13.8 % (24.0-44.0); MCHC 33.4 g/dL (28.0-37.0); PLATELET COUNT 195 thou/uL (150-400); RBC 3.75 mil/uL (4.50-6.00); RDW 14.5 % (10.5-14.5); WBC 13.6 thou/uL (4.0-11.0)
[2017-06-19 21:10] LABS: MANUAL DIFF NO
[2017-06-19 21:14] LABS: ALBUMIN 3.1 g/dL (3.4-5.0); CALCIUM 8.4 mg/dL (8.5-10.1); POTASSIUM 4.8 mmol/L (3.5-5.1); TOTAL BILIRUBIN 0.5 mg/dL (<0.1-1.0); TOTAL PROTEIN 5.7 g/dL (6.4-8.2)
[2017-06-20] VITALS (20 sets, daily range): BP systolic 92–157; BP diastolic 55–87
[2017-06-20 00:46] LABS: HEMATOCRIT 25.3 % (42.0-52.0); HEMOGLOBIN 8.4 gm/dL (14.0-18.0)
[2017-06-20 06:27] LABS: HEMATOCRIT 23.1 % (42.0-52.0); HEMOGLOBIN 7.6 gm/dL (14.0-18.0); MCH 27.1 pg (26.0-34.0); MCHC 33.1 g/dL (28.0-37.0); MCV 81.9 fL (80.0-100.0); RBC 2.82 mil/uL (4.50-6.00); RDW 14.4 % (10.5-14.5); WBC 10.8 thou/uL (4.0-11.0)
[2017-06-20 06:36] LABS: CALCIUM 8.1 mg/dL (8.5-10.1); POTASSIUM 4.5 mmol/L (3.5-5.1)
[2017-06-21] VITALS (58 sets, daily range): BP systolic 60–181; BP diastolic 22–107
[2017-06-21 09:34] LABS: HEMATOCRIT 23.3 % (42.0-52.0); HEMOGLOBIN 8.1 gm/dL (14.0-18.0); MCH 28.7 pg (26.0-34.0); MCHC 34.6 g/dL (28.0-37.0); MCV 82.8 fL (80.0-100.0); RBC 2.81 mil/uL (4.50-6.00); RDW 15.1 % (10.5-14.5); WBC 10.7 thou/uL (4.0-11.0)
[2017-06-21 09:41] LABS: CALCIUM 8.3 mg/dL (8.5-10.1); CREATININE 1.4 mg/dL (0.7-1.3); MAGNESIUM 1.4 mg/dL (1.8-2.4); POTASSIUM 4.1 mmol/L (3.5-5.1)
[2017-06-21 14:09] LABS: MCHC 34.1 g/dL (28.0-37.0)
[2017-06-21 14:10] LABS: MCH 28.5 pg (26.0-34.0); MCV 83.5 fL (80.0-100.0); RBC 2.14 mil/uL (4.50-6.00); RDW 15.3 % (10.5-14.5); WBC 10.5 thou/uL (4.0-11.0)
[2017-06-21 14:14] LABS: CALCIUM 7.9 mg/dL (8.5-10.1); CREATININE 1.3 mg/dL (0.7-1.3); POTASSIUM 3.6 mmol/L (3.5-5.1)
[2017-06-21 14:14] LABS: HEMOGLOBIN 6.1 gm/dL (14.0-18.0)
[2017-06-21 14:15] LABS: HEMATOCRIT 17.9 % (42.0-52.0)
[2017-06-21 14:22] LABS: ALBUMIN 2.3 g/dL (3.4-5.0); MAGNESIUM 3.3 mg/dL (1.8-2.4); TOTAL BILIRUBIN 0.2 mg/dL (<0.1-1.0); TOTAL PROTEIN 4.5 g/dL (6.4-8.2); TROPONIN-I 0.24 ng/mL (<0.04-0.07)
[2017-06-21 15:10] LABS: MCH 28.5 pg (26.0-34.0); MCHC 34.2 g/dL (28.0-37.0); MCV 83.3 fL (80.0-100.0); RBC 1.96 mil/uL (4.50-6.00); RDW 15.1 % (10.5-14.5); WBC 9.5 thou/uL (4.0-11.0)
[2017-06-21 15:12] LABS: HEMATOCRIT 16.3 % (42.0-52.0); HEMOGLOBIN 5.6 gm/dL (14.0-18.0)
[2017-06-21 15:16] LABS: CALCIUM 7.9 mg/dL (8.5-10.1); CREATININE 1.5 mg/dL (0.7-1.3); POTASSIUM 3.9 mmol/L (3.5-5.1)
[2017-06-21 15:22] LABS: ALBUMIN 2.2 g/dL (3.4-5.0); MAGNESIUM 1.9 mg/dL (1.8-2.4); TOTAL BILIRUBIN 0.2 mg/dL (<0.1-1.0); TOTAL PROTEIN 4.2 g/dL (6.4-8.2)
[2017-06-21 17:15] LABS: PROTIME 10.6 Seconds (9.3-11.4)
[2017-06-21 20:18] LABS: URINE BILIRUBIN NEGATIVE (Negative); URINE BLOOD 1+ (Negative); URINE COLOR YELLOW; URINE GLUCOSE-RANDOM* 1+ (Negative); URINE KETONES TRACE (Negative); URINE LEUKOCYTES-REFLEX NEGATIVE (Negative); URINE PROTEIN (DIPSTICK) NEGATIVE (Negative); URINE UROBILINOGEN 0.2 E.U./dl (0.2-1.0)
[2017-06-21 20:27] LABS: CASTS None Seen /LPF (None Seen); CRYSTALS None Seen /LPF (None Seen); SQUAMOUS 0-3 Few /LPF (0-3); URINE RBC 0-2 Rare /HPF (0-2); URINE WBC-REFLEX None Seen /HPF (0-5)
[2017-06-21 21:37] LABS: HEMATOCRIT 23.2 % (42.0-52.0)
[2017-06-21 21:42] LABS: HEMOGLOBIN 7.9 gm/dL (14.0-18.0)
[2017-06-21 22:19] LABS: ABG SAMPLE TYPE ARTERIAL; BE(vivo) -5.2 mmol/L (-2 to +3); LACTATE 2.75 mmol/L (0.5-2.0); O2Hb 97.6 % (92.0-98.0); PCO2 31.8 mmHg (35.0-45.0); PO2 159.6 mmHg (80.0-100.0); pH 7.395 (7.360-7.450); sO2 99.1 % (92.0-98.0)
[2017-06-21 22:21] LABS: STICK SITE R.RADIAL
[2017-06-21 22:23] LABS: TIDAL VOLUME 500 ml
[2017-06-22] VITALS (42 sets, daily range): BP systolic 91–155; BP diastolic 53–92
[2017-06-22 05:08] LABS: ABG SAMPLE TYPE ARTERIAL; BE(vivo) -4.8 mmol/L (-2 to +3); LACTATE 1.23 mmol/L (0.5-2.0); O2(CT) 10.8 mL/dL (15.0-23.0); O2Hb 97.3 % (92.0-98.0); PCO2 29.5 mmHg (35.0-45.0); PO2 165.9 mmHg (80.0-100.0); STICK SITE R.RADIAL; pH 7.426 (7.360-7.450); sO2 99.2 % (92.0-98.0); tCO2 19.9 mmol/L (24.0-30.0)
[2017-06-22 05:09] LABS: TIDAL VOLUME 500 ml
[2017-06-22 08:03] LABS: ABSOLUTE NEUTROPHILS 8.5 thou/uL (1.4-8.2); BASOPHILS 0.4 % (0.0-2.0); EOSINOPHILS 0.1 % (0.0-3.0); HEMATOCRIT 21.1 % (42.0-52.0); HEMOGLOBIN 7.2 gm/dL (14.0-18.0); MCH 28.4 pg (26.0-34.0); MCHC 34.2 g/dL (28.0-37.0); MCV 83.2 fL (80.0-100.0); MONOCYTES 9.7 % (1.0-8.0); PLATELET COUNT 109 thou/uL (150-400); POLYS 74.8 % (36.0-66.0); RBC 2.53 mil/uL (4.50-6.00); RDW 14.4 % (10.5-14.5); WBC 11.3 thou/uL (4.0-11.0)
[2017-06-22 08:04] LABS: MANUAL DIFF NO
[2017-06-22 08:13] LABS: CALCIUM 6.6 mg/dL (8.5-10.1); CREATININE 1.2 mg/dL (0.7-1.3); POTASSIUM 3.4 mmol/L (3.5-5.1); TOTAL BILIRUBIN 0.3 mg/dL (<0.1-1.0)
[2017-06-22 13:25] LABS: HEMOGLOBIN 6.7 gm/dL (14.0-18.0)
[2017-06-22 13:49] LABS: HEMATOCRIT 19.5 % (42.0-52.0)
[2017-06-22 21:26] LABS: HEMATOCRIT 20.8 % (42.0-52.0); HEMOGLOBIN 7.1 gm/dL (14.0-18.0)
[2017-06-23] VITALS (52 sets, daily range): BP systolic 105–161; BP diastolic 53–115
[2017-06-23 04:35] LABS: EOSINOPHILS 0.7 % (0.0-3.0); HEMOGLOBIN 6.7 gm/dL (14.0-18.0); PLATELET COUNT 106 thou/uL (150-400); RDW 15.2 % (10.5-14.5)
[2017-06-23 04:36] LABS: ABSOLUTE NEUTROPHILS 8.1 thou/uL (1.4-8.2); BASOPHILS 0.5 % (0.0-2.0); LYMPHOCYTES 10.2 % (24.0-44.0); MCH 29.5 pg (26.0-34.0); MCHC 34.9 g/dL (28.0-37.0); MCV 84.4 fL (80.0-100.0); MONOCYTES 9.2 % (1.0-8.0); POLYS 79.4 % (36.0-66.0); RBC 2.27 mil/uL (4.50-6.00); WBC 10.3 thou/uL (4.0-11.0)
[2017-06-23 04:53] LABS: CALCIUM 8.1 mg/dL (8.5-10.1); CREATININE 1.4 mg/dL (0.7-1.3)
[2017-06-23 05:12] LABS: MANUAL DIFF NO
[2017-06-23 05:13] LABS: HEMATOCRIT 19.2 % (42.0-52.0)
[2017-06-23 13:30] LABS: HEMATOCRIT 21.9 % (42.0-52.0); HEMOGLOBIN 7.6 gm/dL (14.0-18.0)
[2017-06-23 20:16] LABS: HEMOGLOBIN 7.3 gm/dL (14.0-18.0)
[2017-06-24] VITALS (26 sets, daily range): BP systolic 126–183; BP diastolic 56–82
[2017-06-24 04:37] LABS: ABSOLUTE NEUTROPHILS 8.1 thou/uL (1.4-8.2); BASOPHILS 0.6 % (0.0-2.0); HEMATOCRIT 20.5 % (42.0-52.0); HEMOGLOBIN 7.1 gm/dL (14.0-18.0); LYMPHOCYTES 10.1 % (24.0-44.0); MCH 29.5 pg (26.0-34.0); MCHC 34.5 g/dL (28.0-37.0); MCV 85.6 fL (80.0-100.0); MONOCYTES 8.9 % (1.0-8.0); PLATELET COUNT 120 thou/uL (150-400); POLYS 79.4 % (36.0-66.0); RDW 15.3 % (10.5-14.5); WBC 10.3 thou/uL (4.0-11.0)
[2017-06-24 04:40] LABS: MANUAL DIFF NO
[2017-06-24 04:45] LABS: CALCIUM 8.1 mg/dL (8.5-10.1); CREATININE 1.2 mg/dL (0.7-1.3); POTASSIUM 3.9 mmol/L (3.5-5.1)
[2017-06-24 05:07] LABS: % SATURATION 4 % (20-39); IRON 6 ug/dL (65-175); TIBC 163 ug/dL (250-450); UIBC 157 ug/dL
[2017-06-24 12:45] LABS: HEMATOCRIT 21.5 % (42.0-52.0); HEMOGLOBIN 7.3 gm/dL (14.0-18.0)
[2017-06-24 21:30] LABS: HEMATOCRIT 20.5 % (42.0-52.0); HEMOGLOBIN 6.9 gm/dL (14.0-18.0)
[2017-06-25] VITALS (65 sets, daily range): BP systolic 132–219; BP diastolic 57–125
[2017-06-25 05:13] LABS: HEMATOCRIT 22.8 % (42.0-52.0); HEMOGLOBIN 7.8 gm/dL (14.0-18.0)
[2017-06-25 13:10] LABS: HEMOGLOBIN 7.7 gm/dL (14.0-18.0)
[2017-06-25 16:49] LABS: ABG SAMPLE TYPE ARTERIAL; BE(vivo) -3.1 mmol/L (-2 to +3); HCO3 20.3 mmol/L (22.0-26.0); LACTATE 1.14 mmol/L (0.5-2.0); O2(CT) 12.8 mL/dL (15.0-23.0); O2Hb 97.6 % (92.0-98.0); PCO2 30.3 mmHg (35.0-45.0); PO2 140.8 mmHg (80.0-100.0); Pressure Support 6 cm H20; STICK SITE R.RADIAL; pH 7.444 (7.360-7.450); sO2 98.9 % (92.0-98.0); tCO2 21.2 mmol/L (24.0-30.0)
[2017-06-25 20:46] LABS: HEMATOCRIT 23.2 % (42.0-52.0); HEMOGLOBIN 7.9 gm/dL (14.0-18.0)
[2017-06-25 21:46] LABS: URINE BILIRUBIN 1+ (Negative); URINE BLOOD 3+ (Negative); URINE COLOR YELLOW; URINE GLUCOSE-RANDOM* TRACE (Negative); URINE KETONES 1+ (Negative); URINE NITRITE NEGATIVE (Negative); URINE PROTEIN (DIPSTICK) 2+ (Negative); URINE SPECIFIC GRAVITY 1.025 (1.003-1.035)
[2017-06-25 21:53] LABS: ICTOTEST (BILI CONFIRMATORY) Negative (Negative)
[2017-06-25 21:58] LABS: SQUAMOUS None Seen /LPF (0-3); URINE RBC >20 Many /HPF (0-2); URINE WBC 6-15 Few /HPF (0-5)
[2017-06-25 21:59] LABS: FINE GRANULAR CASTS 0-3 Few /LPF (None Seen)
[2017-06-25 22:02] LABS: AMORPHOUS URATES Moderate /LPF (None Seen)
[2017-06-26] VITALS (24 sets, daily range): BP systolic 134–195; BP diastolic 59–86
[2017-06-26 04:52] LABS: HEMATOCRIT 20.9 % (42.0-52.0); HEMOGLOBIN 7.3 gm/dL (14.0-18.0)
[2017-06-26 09:16] LABS: HEMATOCRIT 20.9 % (42.0-52.0); HEMOGLOBIN 7.3 gm/dL (14.0-18.0); MCH 29.2 pg (26.0-34.0); MCHC 34.1 g/dL (28.0-37.0); MCV 85.7 fL (80.0-100.0); RBC 2.46 mil/uL (4.50-6.00); RDW 14.6 % (10.5-14.5); WBC 9.9 thou/uL (4.0-11.0)
[2017-06-26 09:30] LABS: CALCIUM 8.5 mg/dL (8.5-10.1); CREATININE 1.2 mg/dL (0.7-1.3); POTASSIUM 3.8 mmol/L (3.5-5.1)
[2017-06-26 12:56] LABS: HEMATOCRIT 25.1 % (42.0-52.0); HEMOGLOBIN 8.5 gm/dL (14.0-18.0)
[2017-06-26 21:13] LABS: HEMATOCRIT 21.9 % (42.0-52.0); HEMOGLOBIN 7.3 gm/dL (14.0-18.0)
[2017-06-27] VITALS (12 sets, daily range): BP systolic 151–177; BP diastolic 64–81
[2017-06-27 05:43] LABS: HEMATOCRIT 21.8 % (42.0-52.0); HEMOGLOBIN 7.3 gm/dL (14.0-18.0)
[2017-06-27 16:46] LABS: CHOLESTEROL 119 mg/dL (<200); HDL CHOLESTEROL 17 mg/dL (>40); LDL CHOLESTEROL 80 mg/dL (<100); TRIGLYCERIDE 110 mg/dL (<150); VLDL 22 mg/dL (<40)
[2017-06-28] VITALS (30 sets, daily range): BP systolic 103–236; BP diastolic 54–184
[2017-06-28 02:09] LABS: GLYCOHEMOGLOBIN (HGB A1C) 6.1 % (4.8-5.6)
[2017-06-28 05:35] LABS: HEMATOCRIT 24.5 % (42.0-52.0); MCH 28.5 pg (26.0-34.0); MCHC 32.8 g/dL (28.0-37.0); MCV 86.9 fL (80.0-100.0); RBC 2.82 mil/uL (4.50-6.00); WBC 11.7 thou/uL (4.0-11.0)
[2017-06-28 05:40] LABS: CALCIUM 9.2 mg/dL (8.5-10.1); CREATININE 1.1 mg/dL (0.7-1.3); POTASSIUM 3.9 mmol/L (3.5-5.1)
[2017-06-28 06:22] LABS: MANUAL DIFF YES; PLATELET COUNT 324 thou/uL (150-400)
[2017-06-28 09:35] LABS: ABSOLUTE NEUTROPHILS 9.5 thou/uL (1.4-8.2); PLATELET ESTIMATE NORMAL; TOTAL CELL COUNT 100
[2017-06-28 11:33] LABS: ABG SAMPLE TYPE ARTERIAL; BE(vivo) -2.9 mmol/L (-2 to +3); HCO3 21.2 mmol/L (22.0-26.0); LACTATE 1.33 mmol/L (0.5-2.0); O2(CT) 11.3 mL/dL (15.0-23.0); O2Hb 97.8 % (92.0-98.0); PCO2 33.7 mmHg (35.0-45.0); PO2 139.8 mmHg (80.0-100.0); Pressure Support 6 cm H20; STICK SITE R.BRACHIAL; pH 7.417 (7.360-7.450); sO2 98.8 % (92.0-98.0); tCO2 22.3 mmol/L (24.0-30.0)
[2017-06-29] VITALS (22 sets, daily range): BP systolic 150–201; BP diastolic 60–139
[2017-06-29 04:11] LABS: HEMATOCRIT 27.3 % (42.0-52.0); HEMOGLOBIN 9.1 gm/dL (14.0-18.0); MCH 28.6 pg (26.0-34.0); MCHC 33.2 g/dL (28.0-37.0); RBC 3.18 mil/uL (4.50-6.00); WBC 15.6 thou/uL (4.0-11.0)
[2017-06-30 00:21] VITALS: BP 180/85
[2017-06-30 04:43] VITALS: BP 164/69
[2017-06-30 06:22] LABS: HEMATOCRIT 26.2 % (42.0-52.0); HEMOGLOBIN 8.7 gm/dL (14.0-18.0); MCH 28.7 pg (26.0-34.0); MCHC 33.3 g/dL (28.0-37.0); RBC 3.04 mil/uL (4.50-6.00); RDW 15.5 % (10.5-14.5); WBC 14.7 thou/uL (4.0-11.0)
[2017-06-30 08:00] VITALS: BP 182/83
[2017-06-30 13:19] VITALS: BP 164/82
[2017-06-30 15:31] VITALS: BP 191/86
[2017-06-30 19:38] VITALS: BP 191/98
[2017-07-01] VITALS (8 sets, daily range): BP systolic 146–214; BP diastolic 84–100
[2017-07-01 10:21] LABS: HEMOGLOBIN 8.8 gm/dL (14.0-18.0); MCH 28.3 pg (26.0-34.0); MCHC 32.7 g/dL (28.0-37.0); MCV 86.6 fL (80.0-100.0); RBC 3.12 mil/uL (4.50-6.00); RDW 15.5 % (10.5-14.5)
[2017-07-02 03:25] VITALS: BP 184/86
[2017-07-02 05:32] VITALS: BP 173/87
[2017-07-02 08:42] VITALS: BP 181/96
[2017-07-02 15:48] VITALS: BP 187/87
[2017-07-02 19:13] VITALS: BP 161/77
[2017-07-03 04:28] VITALS: BP 178/94
[2017-07-03 07:05] VITALS: BP 168/95
[2017-07-03 08:50] LABS: HEMATOCRIT 27.1 % (42.0-52.0); MCHC 33.2 g/dL (28.0-37.0); MCV 87.4 fL (80.0-100.0); RBC 3.1 mil/uL (4.50-6.00); RDW 15.8 % (10.5-14.5); WBC 12.7 thou/uL (4.0-11.0)
[2017-07-03 08:57] LABS: CALCIUM 8.5 mg/dL (8.5-10.1); CREATININE 1.4 mg/dL (0.7-1.3); MAGNESIUM 2.1 mg/dL (1.8-2.4); POTASSIUM 3.1 mmol/L (3.5-5.1)
[2017-07-03 09:58] LABS: ABG SAMPLE TYPE ARTERIAL; BE(vivo) 0 mmol/L (-2 to +3); LACTATE 1.75 mmol/L (0.5-2.0); O2(CT) 12.7 mL/dL (15.0-23.0); O2Hb 89.8 % (92.0-98.0); PCO2 31.1 mmHg (35.0-45.0); PO2 59.7 mmHg (80.0-100.0); STICK SITE R.RADIAL; pH 7.486 (7.360-7.450); tCO2 23.9 mmol/L (24.0-30.0)
[2017-07-03 12:14] VITALS: BP 190/89
[2017-07-03 19:37] VITALS: BP 183/84
[2017-07-03 23:53] VITALS: BP 183/74
[2017-07-04 04:03] VITALS: BP 180/90
[2017-07-04 07:56] VITALS: BP 184/81
[2017-07-04 12:06] LABS: CALCIUM 8.4 mg/dL (8.5-10.1); CREATININE 1.3 mg/dL (0.7-1.3)
[2017-07-04 12:10] LABS: POTASSIUM 2.9 mmol/L (3.5-5.1)
[2017-07-04 17:14] VITALS: BP 188/86
[2017-07-04 20:00] VITALS: BP 185/82
[2017-07-05 04:00] VITALS: BP 185/72
[2017-07-05 06:35] LABS: HEMATOCRIT 26.5 % (42.0-52.0); HEMOGLOBIN 8.7 gm/dL (14.0-18.0); MCHC 32.9 g/dL (28.0-37.0); MCV 88.2 fL (80.0-100.0); RDW 16.5 % (10.5-14.5); WBC 10.4 thou/uL (4.0-11.0)
[2017-07-05 06:49] LABS: CALCIUM 8.5 mg/dL (8.5-10.1); CREATININE 1.6 mg/dL (0.7-1.3); POTASSIUM 3.6 mmol/L (3.5-5.1)
[2017-07-05 07:30] VITALS: BP 182/86
[2017-07-05 12:45] VITALS: BP 171/85
[2017-07-05 16:26] VITALS: BP 179/80
[2017-07-05 19:30] VITALS: BP 136/63
[2017-07-06 03:13] VITALS: BP 163/84
[2017-07-06 06:36] LABS: CALCIUM 8.5 mg/dL (8.5-10.1); CREATININE 1.3 mg/dL (0.7-1.3); POTASSIUM 3.3 mmol/L (3.5-5.1)
[2017-07-06 08:17] LABS: HEMATOCRIT 26.7 % (42.0-52.0); HEMOGLOBIN 8.7 gm/dL (14.0-18.0); MCH 29.1 pg (26.0-34.0); MCHC 32.5 g/dL (28.0-37.0); MCV 89.4 fL (80.0-100.0); RBC 2.99 mil/uL (4.50-6.00); WBC 10.8 thou/uL (4.0-11.0)
[2017-07-06 08:46] VITALS: BP 190/85
[2017-07-06 11:20] VITALS: BP 150/73
[2017-07-06 17:06] VITALS: BP 171/79
[2017-07-06 20:00] VITALS: BP 173/79
[2017-07-06 21:05] VITALS: BP 150/81
[2017-07-07 04:00] VITALS: BP 199/82
[2017-07-07 05:36] LABS: HEMATOCRIT 25.4 % (42.0-52.0); HEMOGLOBIN 8.6 gm/dL (14.0-18.0); MCH 29.2 pg (26.0-34.0); MCHC 33.8 g/dL (28.0-37.0); MCV 86.3 fL (80.0-100.0); RBC 2.94 mil/uL (4.50-6.00); RDW 16.1 % (10.5-14.5); WBC 10.5 thou/uL (4.0-11.0)
[2017-07-07 05:37] LABS: CALCIUM 8.4 mg/dL (8.5-10.1); CREATININE 1.2 mg/dL (0.7-1.3); POTASSIUM 3.3 mmol/L (3.5-5.1)
[2017-07-07 07:14] VITALS: BP 142/65
[2017-07-07 11:08] VITALS: BP 160/76
[2017-07-07 12:34] VITALS: BP 160/76
[2017-07-07] MEDS ORDERED: LOPRESSOR25 PO (14:10)
[2017-07-07] MEDS ORDERED: IRON325 PO (14:10)
[2017-07-07] MEDS ORDERED: LEVALBUTER0.63 MG/3 INH ×2 (14:10)
[2017-07-07] MEDS ORDERED: PRINIVIL5 MG PO (14:11)
[2017-07-07] MEDS ORDERED: PROTONIX40 M1 PO (14:11)
[2017-07-07] MEDS ORDERED: PULMICORT0.5 MG/21 INH (14:11)
[2017-07-07] MEDS ORDERED: CARAFATE 11 GM/10 M1 PO (14:11)
== END 2017-07-07 15:28 | DRG 377 ==
LOC: ER 12:10 → ICU 14:56 → 3W 14:56 → EROBS 14:56 → 3W 14:56 → 4E 17:20 → ICU 17:20 → 3W 06-29 19:42
PROVIDERS: Emergency Medicine; Family Medicine; Internal Medicine; Internal Medicine Gastroenterology; Internal Medicine Pulmonary Disease; Nurse Practitioner Family; Psychiatry & Neurology Neurology; Specialist
PROC: 0W3P8ZZ Control Bleeding in Gastrointestinal Tract, Via Natural or Artificial Opening Endoscopic (ICD-10-PCS; principal; 2017-06-19)
PROC: 30233N1 Transfusion of Nonautologous Red Blood Cells into Peripheral Vein, Percutaneous Approach (ICD-10-PCS; 2017-06-20)
PROC: 3E0G8GC Introduction of Other Therapeutic Substance into Upper GI, Via Natural or Artificial Opening Endoscopic (ICD-10-PCS; 2017-06-21)
PROC: 5A1955Z Respiratory Ventilation, Greater than 96 Consecutive Hours (ICD-10-PCS; 2017-06-21)
DX: K25.4 Chronic or unspecified gastric ulcer with hemorrhage (principal); I63.9 Cerebral infarction, unspecified; G93.40 Encephalopathy, unspecified; J96.00 Acute respiratory failure, unspecified whether with hypoxia or hypercapnia; N17.9 Acute kidney failure, unspecified; D62 Acute posthemorrhagic anemia; E46 Unspecified protein-calorie malnutrition; R13.10 Dysphagia, unspecified; J20.8 Acute bronchitis due to other specified organisms; K59.00 Constipation, unspecified; I48.0 Paroxysmal atrial fibrillation; E53.8 Deficiency of other specified B group vitamins; E11.9 Type 2 diabetes mellitus without complications; I10 Essential (primary) hypertension; F32.9 Major depressive disorder, single episode, unspecified; Z79.899 Other long term (current) drug therapy; Z68.34 Body mass index [BMI] 34.0-34.9, adult; Z82.3 Family history of stroke
CPT/HCPCS: 10203; 10779; 27000

== ENCOUNTER → 2017-08-02 | Outpatient (CLI) | payer OTHER ==
[~2017-08-02] MED LIST: CARAFATE 11 GM/10 M1 PO; COLACE100 MG PO; IRON325 PO; LASIX 40 MG TAB40 M2 PO; LEVALBUTER0.63 MG/3 INH; LOPRESSOR25 PO; PRINIVIL5 MG PO; PROTONIX40 M1 PO; PULMICORT0.5 MG/21 INH; VENTOLIN HFA 1818 GM INH
[2017-08-02 15:40] LABS: BASOPHILS 0.7 % (0.0-2.0); EOSINOPHILS 0.8 % (0.0-3.0); HEMOGLOBIN 11.1 gm/dL (14.0-18.0); LYMPHOCYTES 20.3 % (24.0-44.0); MCH 26.3 pg (26.0-34.0); MCHC 31.8 g/dL (28.0-37.0); MCV 82.7 fL (80.0-100.0); PLATELET COUNT 321 thou/uL (150-400); POLYS 72.2 % (36.0-66.0); RBC 4.24 mil/uL (4.50-6.00); RDW 16.8 % (10.5-14.5); WBC 8.3 thou/uL (4.0-11.0)
[2017-08-02 15:42] LABS: MANUAL DIFF NO
[2017-08-02 15:47] LABS: CALCIUM 9.4 mg/dL (8.5-10.1); CREATININE 1.9 mg/dL (0.7-1.3); POTASSIUM 4.3 mmol/L (3.5-5.1)
== END ==
LOC: SEN 08:52
PROVIDERS: Emergency Medicine
DX: I10 Essential (primary) hypertension (principal); I63.9 Cerebral infarction, unspecified; D64.9 Anemia, unspecified

== ENCOUNTER → 2017-09-02 | Outpatient (CLI) | payer OTHER | LOC: SEN 10:50 | DX: I10 Essential (primary) hypertension (principal); I50.9 Heart failure, unspecified; K21.9 Gastro-esophageal reflux disease without esophagitis; K92.2 Gastrointestinal hemorrhage, unspecified; F32.9 Major depressive disorder, single episode, unspecified ==

== ENCOUNTER → 2017-11-03 | Outpatient (CLI) | payer OTHER ==
[~2017-11-03] VITALS: Ht 190.5 cm; Wt 106.1 kg
[2017-11-03 13:24] VITALS: BP 161/90
== END ==
LOC: SEN 10:56
DX: Z09 Encounter for follow-up examination after completed treatment for conditions other than malignant neoplasm (principal); I10 Essential (primary) hypertension; E11.9 Type 2 diabetes mellitus without complications

== ENCOUNTER → 2017-12-01 | Outpatient (CLI) | payer OTHER ==
[~2017-12-01] VITALS: Ht 185.4 cm; Wt 105.7 kg
[2017-12-01 14:23] VITALS: BP 181/88
[2017-12-01 15:38] LABS: ABSOLUTE NEUTROPHILS 3.6 thou/uL (1.4-8.2); BASOPHILS 0.7 % (0.0-2.0); EOSINOPHILS 1.3 % (0.0-3.0); HEMATOCRIT 33.8 % (42.0-52.0); HEMOGLOBIN 11.4 gm/dL (14.0-18.0); LYMPHOCYTES 19.2 % (24.0-44.0); MCH 26.7 pg (26.0-34.0); MCHC 33.7 g/dL (28.0-37.0); MCV 79.3 fL (80.0-100.0); MONOCYTES 6.8 % (1.0-8.0); PLATELET COUNT 228 thou/uL (150-400); RBC 4.27 mil/uL (4.50-6.00); RDW 14.6 % (10.5-14.5)
[2017-12-01 15:48] LABS: CALCIUM 9.1 mg/dL (8.5-10.1); CREATININE 1.4 mg/dL (0.7-1.3); POTASSIUM 3.2 mmol/L (3.5-5.1)
== END ==
LOC: SEN 09:30
PROVIDERS: Nurse Practitioner Family
DX: I10 Essential (primary) hypertension (principal); E11.9 Type 2 diabetes mellitus without complications